=== PATIENT | female | born 1940 | race Caucasian/White ===

== ENCOUNTER 2016-10-14 13:29 | Inpatient (IN) | payer MEDICARE ==
--- NOTE | ~2016-10-14 | HP ---
Unit #: [id number] #: [id number] Patient: JUAN ROLDAN [id number] [address] [address] [id number] E MR#: [id number] NAME: JUAN ROLDAN. ROOM: Age: 75 Sex: F Admission Date: 10/14/2016 : 1940 Attending Physician: Roberto Vanessa M.D. HISTORY AND PHYSICAL CHIEF COMPLAINT Abdominal pain. HISTORY OF PRESENT ILLNESS The patient is a 75-year-old female with a history of colon cancer status post hemicolectomy and history of multiple bowel obstruction in the past, brought to the emergency room with abdominal pain. It started last night. The patient was discharged back in February with small bowel obstruction. The patient presented to the emergency room with heart pain since last night. The pain has been gradually worsening. The patient also stated the patient ate some popcorn and that made the pain to aggravate. The patient is also complaining of nausea associated with the pain. The patient had CT of the abdomen and pelvis that showed partial mechanical small bowel obstruction at the ileocolonic anastomosis in the left upper quadrant at the level of the distal transverse colon with the distal small bowel measuring 4.4 cm in diameter containing fecalized small bowel contents. The patient is being admitted for the above reasons. PAST MEDICAL HISTORY History of breast cancer status post surgery, COPD, colonic strictures, back surgery, hypertension, chronic back pain, chronic respiratory failure on three liters per nasal cannula, gastroesophageal reflux disease and fibromyalgia. PAST SURGICAL HISTORY Right hemicolectomy, appendectomy, multiple back surgeries, foot surgery, total abdominal hysterectomy and bilateral salpingo-oophorectomy. SOCIAL HISTORY The patient lives alone. She quit smoking many years ago. There is no alcohol or any illicit drug abuse. FAMILY HISTORY Notable for dad having dementia. ALLERGIES Carbamazepine, baclofen, naproxen and levofloxacin. HOME MEDICATIONS 1. Losartan. 2. Tamoxifen. 3. Ranitidine. 4. Vitamin B12. 5. Folic acid. Unit #: [id number] #: [id number] Patient: JUAN ROLDAN 6. ProAir. 7. Phenergan. 8. Neurontin. PHYSICAL EXAMINATION GENERAL APPEARANCE: The patient is lying on a bed not in acute distress. VITAL SIGNS: Temperature 97.8. Pulse 131. Respiratory rate 20. Blood pressure 163/116. Sating 98% at room air. HEENT: Head: Atraumatic, normocephalic. ENT: Pupils equal, round, reacting to light and accommodation. Extraocular movements are intact. Dry mucous membrane. NECK: Supple. No lymphadenopathy. LUNGS: Decreased air entry at the bases. No rhonchi. No wheezing. HEART: Regular rate and rhythm. ABDOMEN: Tenderness at the left upper and lower quadrant. Hyperactive bowel sounds. No rigidity. No rebound tenderness. EXTREMITIES: No cyanosis. No clubbing. NEUROLOGIC: The patient is alert, awake, oriented x3. No gross focal motor deficit. DIAGNOSTIC STUDIES LABORATORY: Glucose 100, BUN 19, creatinine 0.9, sodium 138, potassium 3.9, chloride 109, bicarb 20, calcium 9.4, total protein 7.2, albumin 3.9, total bilirubin 0.6, AST 36, ALT 25, alkaline phosphatase 158. Amylase 28, lipase 19. Lactic acid is pending. WBC 12.2, hemoglobin 12.3, hematocrit 37.5, platelets 234, neutrophils 76.6. IMAGING: CT of the abdomen and pelvis shows partial mechanical small bowel obstruction at the ileocolonic anastomosis in the left upper quadrant at the level of the distal transverse colon with the distal small bowel measuring 4.4 cm in diameter, containing fecalized small bowel contents. These are similar to findings noted on CT 03/01/16 and there is also mild dilatation of fluid filled small bowel in the right abdomen. No acute findings on the remainder of the study. Gallbladder distension measuring close to 10 cm in length similar to the prior CT. No renal calculus obstruction. Sigmoid diverticulosis but no diverticulitis. ASSESSMENT 1. Partial small bowel obstruction. 2. Abdominal pain. 3. History of colon cancer status post hemicolectomy. PLAN To admit the patient to inpatient. Continue with bowel rest, IV fluids and LSA consult for the partial small bowel obstruction and pain management. Zofran for the nausea. An NG tube if patient starts vomiting and further recommendations will follow. Dictated by Amada Trejo TD: 10/14/2016 19:01 JOB #: [id number] Unit #: [id number] #: [id number] Patient: YULIJUAN HISTORY AND PHYSICAL Page 1 of 1 X X HISTORY AND PHYSICAL
--- NOTE | ~2016-10-14 | CT4 ---
[facility] A Service of [facility] RADIOLOGY TEXT RESULTS PATIENT: JUAN ROLDAN LOCATION: CEDOF : 40 UNIT #: [id number] AGE: [address]: SREEDHAR DIEHL MD SEX: F ORDER DR: [id number] [facility] [address] [facility]. [place], [place] [address] [id number] E MR#: [id number] Acc #: [id number] NAME: JUAN ROLDAN. : 1940 SEX: F STUDY DATE/TIME: 10/14/2016 15:57 UNIT: LUPE ROOM: STUDY DESCRIPTION: CT Abd and Pelv Wo Cont Attending Physician: Roberto Vanessa M.D. Ordering Physician: Roberto Vanessa M.D. MEDICAL IMAGING REPORT This report is preliminary unless electronic signature is present CT abdomen and pelvis without contrast. HISTORY Abdomen pain, left side, since yesterday. Nausea and diarrhea. TECHNIQUE This CT exam was performed with one or more of the following radiation dose reduction techniques: automatic exposure control, adjustment of mA and/or kV according to patient size, and iterative reconstruction. FINDINGS CT abdomen and pelvis was performed without contrast. CT abdomen demonstrates moderate dilatation of small bowel segment in the mid abdomen extending to the left upper quadrant, with fecalization of distal small bowel contents within the dilated length of small bowel measuring up to 4.4 cm in diameter, with a transition point at the ileocolonic anastomosis in the left upper quadrant at the level of the distal transverse colon, suggesting anastomotic stricture, similar to CT 03/01/16. There is also borderline to mild dilatation of fluid-filled small bowel in the right abdomen, also likely secondary to the distal partial small bowel obstruction. Right hemicolectomy. Distension of the gallbladder measuring 10 cm in length, also similar to the prior CT. Small hiatal hernia. The liver, pancreas, and adrenal glands are normal. Mild generalized bilateral renal parenchymal atrophy. No hydronephrosis. Minimal ascites. Multilevel lower lumbar spinal fusion. CT PELVIS Minimal free fluid in the pelvis. Moderately extensive sigmoid diverticulosis but no evidence of diverticulitis. Urinary bladder is decompressed. Hysterectomy. STS. [facility] A Service of [facility] RADIOLOGY TEXT RESULTS PATIENT: JUAN ROLDAN LOCATION: [facility] [id number] : 40 UNIT #: [id number] AGE: [address]: SREEDHAR DIEHL MD SEX: F ORDER DR: IMPRESSION 1. Partial mechanical small bowel obstruction at the ileal colonic anastomosis in the left upper quadrant at the level of the distal transverse colon with the distal small bowel measuring 4.4 cm in diameter, containing fecalized small bowel contents. These are similar to findings noted on CT 03/01/16, and there is also mild dilatation of fluid-filled small bowel in the right abdomen. 2. No acute findings on the remainder of the study. 3. Gallbladder distension measuring close to 10 cm in length is similar to the prior CT. 4. No urinary calculi or obstruction. 5. Sigmoid diverticulosis but no diverticulitis. Dictated by... Austin Garcia M.D. THIS IS AN ELECTRONICALLY VERIFIED REPORT Austin Garcia M.D. at 10/14/2016 10:49 PM JANAE/alize TD: 10/14/2016 17:33 JOB #: [id number] MEDICAL IMAGING REPORT Page 1 of 1 COPY
--- NOTE | ~2016-10-14 | XA166 ---
[facility] A Service of [facility] RADIOLOGY TEXT RESULTS PATIENT: JUAN ROLDAN LOCATION: C2A : 40 UNIT #: [id number] AGE: [address]: Keira Flores MD SEX: F ORDER DR: [id number] [place] [id number] [facility]. [place], [place] [address] [id number] I MR#: [id number] Acc #: [id number] NAME: JUAN ROLDAN. : 1940 SEX: F STUDY DATE/TIME: 10/16/2016 9:36 UNIT: C2A ROOM: [facility] STUDY DESCRIPTION: XA PICC Line Placement WO Port Attending Physician: Keira Flores M.D. Ordering Physician: Ed Doctor [id number] [facility], [facility] MEDICAL IMAGING REPORT This report is preliminary unless electronic signature is present EXAM Right sided PICC line placement. INDICATIONS Need for IV access. Patient with small bowel obstruction. Diagnosis of October 14, 2016. PRE-PROCEDURE The procedure was explained to the patient and/or patient sales representative cash registers including risks, benefits, potential complications and potential for alternative forms of treatment. Informed consent was obtained, and prior to initiating the procedure a formal timeout procedure was performed. PROCEDURE Using full standard sterile barrier technique, including caps, gowns, gloves, masks, as well as sterile skin preparation and standard sterile draping, the right arm was prepped and draped in the usual fashion, and real-time sterile ultrasound guidance was used to localize an arm vein and to confirm vessel patency. A hard copy ultrasound image was recorded. After local anesthesia with 1% Xylocaine, the vein was punctured using real-time sterile ultrasound guidance, and an 0.018 guidewire was advanced into the superior vena cava, using fluoroscopic guidance. A 5 Guamanian dual lumen PICC was then measured and deployed with the tip positioned in the superior vena cava. The position of the line was documented with a radiographic image. The line was secured in place with an adhesive dressing and an antibiotic patch was applied. Total fluoro time was 0.1 minutes. IMPRESSION Successful placement of a 5 Guamanian dual lumen PowerPICC via the right arm under ultrasound and fluoroscopic guidance. The tip of the PICC is in good position in the superior vena cava. [facility]. [facility] A Service of [facility] RADIOLOGY TEXT RESULTS PATIENT: JUAN ROLDAN LOCATION: [facility] 226-01 : 40 UNIT #: [id number] AGE: [address]: Keira Flores MD SEX: F ORDER DR: Dictated by... Lainey Kimbrough M.D. THIS IS AN ELECTRONICALLY VERIFIED REPORT Lainye Kimbrough M.D. at 10/18/2016 4:54 PM AFF/dj TD: 10/17/2016 08:49 JOB #: [id number] MEDICAL IMAGING REPORT Page 1 of 1 COPY
--- NOTE | ~2016-10-14 | CO ---
Unit #: [id number] #: [id number] Patient: JUAN ROLDAN [id number] [address] [place], [place] [address] [id number] I MR#: [id number] NAME: JUAN ROLDAN. ROOM: 565 Age: 75 Sex: F Admission Date: 10/14/2016 : 1940 Attending Physician: Keira Flores M.D. Consultation Date: 10/15/2016 CONSULTATION REPORT BRIEF HISTORY The patient is a 75-year-old lady, who presents with crampy abdominal pain, nausea and vomiting. She has had multiple bowel movements including loose bowel movements. She has had multiple admissions for small bowel obstruction. She states her pain is left upper quadrant, crampy in characteristic, nonradiating. She has had no fevers or chills. PAST MEDICAL HISTORY She has a history of COPD, hypertension, chronic back pain, gastroesophageal reflux disease and fibromyalgia. PAST SURGICAL HISTORY She has had a right hemicolectomy and total abdominal hysterectomy. SOCIAL HISTORY Lives alone. No smoking. No alcohol. FAMILY HISTORY Negative for GI malignancy. REVIEW OF SYSTEMS No cardiopulmonary complaints at this time. Else, 10 systems reviewed and negative. PHYSICAL EXAMINATION GENERAL: She is awake, alert, appropriate, currently afebrile. HEENT: Unremarkable. NECK: Supple. No JVD. Trachea midline. LUNGS: Clear to auscultation. Bilateral breath sounds symmetric. CARDIOVASCULAR: Regular rate and rhythm. ABDOMEN: Soft. It is nontender, and nondistended. I palpate no masses. No hepatosplenomegaly. EXTREMITIES: No clubbing, cyanosis, or edema. DIAGNOSTIC STUDIES LABORATORY RESULTS: Show white count of 12, hemoglobin of 12.3. Chemistries are normal. CT scan shows dilated small bowel with transition zone at the small bowel anastomosis. ASSESSMENT Small bowel obstruction. PLAN Unit #: [id number] #: [id number] Patient: JUAN ROLDAN Recommend IV fluids, bowel rest, NG tube decompression. We will reassess. Consider small bowel follow-through versus operative management. Dictated by... Hossein Tapia M.D. LAURA/larry TD: 10/15/2016 09:25 JOB #: [id number] CONSULTATION REPORT Page 1 of 1 X Hossein Tapia MD CONSULTATION REPORT
--- NOTE | ~2016-10-14 | A ---
[facility] Nutrition Therapy DATE: 10/16/16 Patient: JUAN ROLDAN Physician: GERARD Address: [address] [place] [address] Room/Bed: [address] [place] [address], Zip: [place] [address] Admit Date: 10/14/16 Date of : 40 Height: 5 3 Weight: 136 61.68 NUTRITIONAL ASSESSMENT: REASON: 6 NUTRITION RISK PT RE: POOR PO INTAKE + 40# WEIGHT LOSS, ALSO CONSULT RE: WEIGHT LOSS PT IS 75 Y.O. FEMALE ADMITTED FOR PARTIAL SMALL BOWEL OBSTRUCTION, ABD PAIN PMH: CVA, COPD, GERD, MULTIPLE BOWEL OBSTRUCTIONS, BREAST CA S/P LUMPECTOMY, HTN, CHRONIC RESP FAILURE, COLON CA S/P HEMICOLECTOMY Anthropometrics: 5'3", WT: 136# (62 KG), BMI: 24.1, 118%IBW Labs: GFR: 49.1 Meds: REGLAN, D5%, PROTONIX, ZOFRAN, NACL I/O & Bowel function: -/755; NG TO LWS Skin Integrity: SCATTERED BRUISES; DRY SKIN NOTED Estimated Nutrition Needs: INCREASED NUTRIENT NEEDS 2' WEIGHT LOSS NOTED, CURRENT CONDITION, DECREASED PO INTAKE AND APPETITE Assessment: CHART REVIEWED AND EVENTS NOTED. PT SEEN FOR 6 NUTRITION RISK PT RE: WEIGHT LOSS + POOR PO INTAKE. PT CONFIRMED DECREASED PO INTAKE 2' DECREASED APPETITE PRIOR TO ADMIT FOR WEEKS D/T N/V/ABD PAIN. PT REPORTS LOSING ~40# BUT UNABLE TO KNOW TIME FRAME OF WEIGHT LOSS. PER [employer] PT WEIGHED 170# BACK IN 2014, AND NOTED ~145-150# IN 2016. OF NOTE, RD ASSESSED PT BACK IN FEB 2016 AND NOTED PT TO HAVE POOR PO INTAKE. THIS RD ENCOURAGED SMALL FREQUENT MEALS AND SLOW GRADUAL PO INTAKE ONCE DIET ADVANCES, PT AGREED. PT REPORTED NO DIET QUESTIONS AT THIS TIME. RD TO FOLLOW. SEE RECOMMENDATIONS BELOW. Dx: INADEQUATE PROTEIN-ENERGY INTAKE R/T DECREASED APPETITE, CURRENT CONDITION AEB PT REPORT ABOVE, WEIGHT LOSS NOTED OVER PAST 2 YEARS. Intervention: 1. NO DIET ORDER 2. RD CONSULT Monitoring, Evaluation and Goals: 1. ORAL INTAKE; ADVANCE DIET AND CONSUME >50% OF MEALS W/NO C/O N/V/D 2. WEIGHTS; PREVENT FURTHER UNINTENTIONAL WEIGHT LOSS 3. GI; PROMOTE REGULAR GI FUNCTION MONITOR: [facility] Nutrition Therapy DATE: 10/16/16 Patient: JUAN Botello UYLI Physician: GERARD Address: [address] [place] [address] Room/Bed: [address] [place] [address], Zip: [place] [address] Admit Date: 10/14/16 Date of : 40 Height: 5 3 Weight: 136 61.68 -DIET ADVANCEMENT -PO INTAKE/APPETITE -WEIGHTS Recommendations: 1. ONCE MEDICALLY FEASIBLE, BEGIN WITH CLEAR LIQUID DIET AND ADVANCE TOLERATED TO LOW FIBER/GI SOFT 2. PLEASE ORDER ENSURE CLEAR BID, IF PT ON CLEAR LIQUID, OR ENSURE ENLIVE SHAKES BID ONCE DIET ADVANCES 3. APPRECIATE FAMILY AND STAFF TO ENCOURAGE PO INTAKE 4. IF PT UNABLE TO TOLERATE PO INTAKE, CONSULT RD FOR RECOMMENDATIONS RD WILL F/U PER PROTOCOL PT IS MODERATELY COMPROMISED Respectfully, BURAK ALEXANDER MS, RD, LD [employer] [facility] [employer] cc: client file
--- NOTE | ~2016-10-14 | DS ---
Unit #: [id number] #: [id number] Patient: JUAN BALDWIN [id number] [address] [address] [id number] I MR#: [id number] NAME: JUAN BALDWIN. ROOM: 226 Age: 75 Sex: F Admission Date: 10/14/2016 : 1940 Discharge Date: 10/18/2016 Attending Physician: Keira Flores M.D. Primary Care Physician: Md2[facility] DISCHARGE SUMMARY PRINCIPAL DIAGNOSES 1. Partial small bowel obstruction, resolved. 2. Toxic metabolic encephalopathy secondary to #1, now resolved. 3. Chronic hypoxic respiratory failure, maintained on 2 to 3 L of oxygen per nasal cannula continuously. The patient is not compliant with this. 4. Chronic pain syndrome, maintained on morphine pain pump. 5. Chronic obstructive pulmonary disease. 6. Hypertension. 7. Gastroesophageal reflux disease. 8. Physical deconditioning. 9. History of stroke. 10. History of breast cancer. 11. Leukopenia: Discharge white blood cell count 3.7. 12. Hypokalemia. 13. Normocytic anemia. CLINICAL HISTORY/HOSPITAL COURSE Ms. Baldwin is a 75-year-old female with a history of recurrent small bowel obstruction following a hemicolectomy who presents to the ER with complaints of abdominal pain, nausea and omitting. Please refer to H and P for further details. CT scan of the abdomen and pelvis in the emergency department revealed partial mechanical small bowel obstruction at the ileocolonic anastomosis. No other acute findings were noted. The patient was subsequently admitted. The patient was made NPO, placed on IV fluids, antiemetics and pain medication. LSA was consulted. With supportive management including an NG-tube for a short period, the patient's symptoms improved. NG was subsequently removed given follow up KUB did not demonstrate any obstruction. The patient subsequently underwent a small bowel follow through on October 17 which was not revealing any obstruction currently. The patient was placed on clears and now has been placed on a full liquid diet which she is tolerating without any pain, nausea or vomiting. The patient was mildly confused upon presentation but this resolved spontaneously. She is alert and oriented x3 for the most part now but still intermittently remains confused and I suspect this is close to her base and can be followed up as an outpatient. The patient is also significantly deconditioned and will be discharged to rehab. Unit #: [id number] #: [id number] Patient: JUAN BALDWIN The patient does have a history of hypertension but has remained off of her antihypertensives during hospitalization here with systolics generally running in the 130s. I am going to hold her Cozaar but this can be reinitiated at rehab as necessary. The patient also has chronic respiratory failure but is noncompliant with her oxygen. O2 sats are remaining in the 90s generally off of oxygen but if her O2 sats drop she does chronically wear 2 to 3 L at home. DISCHARGE CONDITION Stable. DISCHARGE STATUS Discharge to rehab. DISCHARGE MEDICATIONS 1. Ventolin inhaler one puff every six hours p.r.n. for shortness of breath. 2. Combivent nebulizer solution, 3 mL every six hours p.r.n. for shortness of breath. 3. Tylenol 650 mg p.o. q.6 hours p.r.n. for pain. 4. Phenergan 25 mg p.o. q.6 hours p.r.n. for nausea. 5. Mineral oil 3 mL p.o. daily. 6. Ranitidine 300 mg p.o. b.i.d. 7. Vitamin B12 1000 mcg p.o. daily. 8. O2 a 2 L per nasal cannula continuous if patient is agreeable. Of note, patient's gabapentin, which is 600 mg four times daily and Losartan 50 mg p.o. daily, are being held. She is not complaining of any increased pain. Thus, I did not reinitiate her gabapentin and, again, blood pressure, as noted above, has been stable but if blood pressure elevates you can reinitiate losartan. DISCHARGE INSTRUCTIONS The patient was instructed to follow a regular diet. She can increase he activity as tolerated under the care of physical and occupational therapy. FOLLOWUP The patient will follow up with [facility] upon discharge from rehab. She can follow up with Dr. Rose, who is her chronic pain management, upon discharge from rehab as well. She can follow up with LSA in two weeks. Dictated by... Keira Flores M.D. SIMÓN/nanette TD: 10/18/2016 11:24 JOB #: [id number] Unit #: [id number] #: [id number] Patient: JUAN BALDWIN A DISCHARGE SUMMARY Page 1 of 1 X Keira Flores MD X DISCHARGE SUMMARY
--- NOTE | ~2016-10-14 | CR4 ---
[facility] A Service of [facility] RADIOLOGY TEXT RESULTS PATIENT: JUAN ROLDAN LOCATION: [facility] 565-01 : 40 UNIT #: [id number] AGE: [address]: Keira Flores MD SEX: F ORDER DR: [id number] [facility] [address] [facility]. [place], [place] [address] [id number] I MR#: [id number] Acc #: [id number] NAME: JUAN ROLDAN : 1940 SEX: F STUDY DATE/TIME: 10/16/2016914 UNIT: [facility] ROOM: [facility] STUDY DESCRIPTION: CR Abdomen Flat Upright or Dec Attending Physician: Keira Flores M.D. Ordering Physician: Abimael Estrada III, M.D. MEDICAL IMAGING REPORT This report is preliminary unless electronic signature is present EXAM Abdomen supine and upright, 10/16/2016, 0915 hours. CLINICAL HISTORY 75-year-old woman with shortness of air, abdominal pain, small bowel obstruction for 2 days for followup. COMPARISON 10/15/2016 FINDINGS Supine and upright views of the abdomen demonstrate a new nasogastric tube with tip directed rightward in the right upper quadrant, likely at or near the pylorus. Pump device over the left lower quadrant is unchanged. There is a nonspecific bowel gas pattern with no significant distension of small bowel or colon. No definite bowel wall thickening is seen. IMPRESSION 1. New nasogastric tube tip is directed rightward in the right upper quadrant, likely at or near the pylorus. 2. No definite bowel obstruction or distension. No free air is seen. There are pelvic phleboliths unchanged. Dictated by... Mariah Myers M.D. THIS IS AN ELECTRONICALLY VERIFIED REPORT Mariah Myers M.D. at 10/16/2016 2:29 PM HUSSEIN/keren TD: 10/16/2016 10:36 [facility] A Service of [facility] RADIOLOGY TEXT RESULTS PATIENT: JUAN ROLDAN LOCATION: [facility] 565-01 : 40 UNIT #: [id number] AGE: [address]: Keira Flores MD SEX: F ORDER DR: JOB #: [id number] MEDICAL IMAGING REPORT Page 1 of 1 COPY
--- NOTE | ~2016-10-14 | CR2 ---
[facility] A Service of [facility] RADIOLOGY TEXT RESULTS PATIENT: JUAN ROLDAN LOCATION: [place] [address] : 40 UNIT #: [id number] AGE: [address]: Keira Flores MD SEX: F ORDER DR: [id number] [place] [id number] [facility]. [place], [place] [address] [id number] I MR#: [id number] Acc #: [id number] NAME: JUAN ROLDAN. : 1940 SEX: F STUDY DATE/TIME: 10/15/2016 7:22 UNIT: [facility] ROOM: [facility] STUDY DESCRIPTION: CR Abdomen Acute Series Attending Physician: Keira Flores M.D. Ordering Physician: Jonatan Dugan M.D. MEDICAL IMAGING REPORT This report is preliminary unless electronic signature is present EXAM Acute abdomen series, 10/15/2016. HISTORY 75-year-old female with abdominal pain for 1 day. COMPARISON Acute abdomen series 03/03/2016. CT abdomen and pelvis 10/14/2016. FINDINGS Frontal chest and 2 flat and upright views of the abdomen were performed, 3 total images. Lungs and pleural spaces are clear. No pneumothorax. Heart size is upper limits. Mediastinum and pulmonary vasculature unremarkable. The bowel gas pattern is nonobstructive. No free intraperitoneal air. Left lower quadrant gastric stimulator. Postsurgical changes of the lumbar spine. IMPRESSION 1. No acute chest findings. 2. Nonspecific, nonobstructive bowel gas pattern. No free intraperitoneal air. Dictated by... Luis Gandhi M.D. THIS IS AN ELECTRONICALLY VERIFIED REPORT Luis Gandhi M.D. at 10/16/2016 8:53 AM MIGUEL/keren [facility] A Service [facility] RADIOLOGY TEXT RESULTS PATIENT: JUAN ROLDAN LOCATION: [facility]09-25 : 40 UNIT #: [id number] AGE: [address]: Keira Flores MD SEX: F ORDER DR: TD: 10/15/2016 08:13 JOB #: [id number] MEDICAL IMAGING REPORT Page 1 of 1 COPY
--- NOTE | ~2016-10-14 | CR236 ---
[facility] A Service of [facility] & [facility] RADIOLOGY TEXT RESULTS PATIENT: JUAN ROLDAN LOCATION: C2A : 40 UNIT #: [id number] AGE: [address]: Keira Flores MD SEX: F ORDER DR: [id number] [place] [id number] [facility]. [id number] MR#: [id number] #: [id number] NAME: JUAN ROLDAN. : 1940 SEX: F STUDY DATE/TIME: 10/17/2016 11:53 UNIT: C2 ROOM: [facility] STUDY DESCRIPTION: CR Small Bowel Sbft W Films Attending Physician: Keira Flores M.D. Ordering Physician: Teddy Lynn M.D. MEDICAL IMAGING REPORT This report is preliminary unless electronic signature is present EXAM Small bowel follow-through INDICATIONS Abdominal pain around pain pump, concern for small bowel obstruction. Patient has had a previous partial colectomy. FINDINGS Multiple spot images were obtained following the ingestion of barium. The study demonstrates dilated loops of small bowel. There is a focal area of fecalized bowel contents within the ileum just before the ileocolic anastomosis, and there appears to be some narrowing of the anastomotic site but contrast does flow through the anastomosis and into the colon. Review of a CT scan from 10/14/2016 shows a large amount of fecalized contents within the ileum just prior to the anastomosis. 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 IMPRESSION Dilated loops of small bowel as described, with fecalization of contents of the ileum just before the ileocolic anastomosis, but there is some contrast entering the colon. 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 Dictated by... Raffy Mei M.D. THIS IS AN ELECTRONICALLY VERIFIED REPORT Raffy Mei M.D. at 10/18/2016 7:46 AM ARS/psc TD: 10/17/2016 22:48 [facility] A Service of [facility] & [facility] RADIOLOGY TEXT RESULTS PATIENT: JUAN ROLDAN LOCATION: [place] [address] : 40 UNIT #: [id number] AGE: [address]: Keira Flores MD SEX: F ORDER DR: VIANEY #: [id number] MEDICAL IMAGING REPORT Page 1 of 1 COPY
[~2016-10-14 13:29] MED LIST: ALTOPREV40 MG PO; AMLODIPINE BESY10 MG PO; B-COMPLEX-VITA1 EACH PO; CALCIUM + D 6001 TA1 PO; CATAPRES-TTS-20.2 MG PO; COMBIVENT INH14.7 GM INH; CYMBALTA30 MG PO; DOMPERIDONE; DOMPERIDONE PO; DURAGESIC TOP; DURAGESIC75 MCG TD; FISH OIL 1,0001 CAP PO; GLUCOSAMINE & C1 CAP PO; HYDROCHLOROTHIA25 MG PO; IMMODIUM1 MG/5 M1 PO; LEVOTHYROXINE75 MCG PO; LORTAB 5/500 TA1 TA1 PO; LOSARTAN POTASS50 MG PO; LYRICA100 MG PO; LYRICA75 MG PO; MULTI-VITAMIN1 TAB PO; NEURONTIN600 MG PO; NEXIUM PO; NOLVADEX PO; OXYCODON HCL-1 UDTAB PO; OXYGEN; PERCOCET 10/3251 TAB PO; PHENERGAN25 M1 PO; PHENERGAN25 MG PO; PROAIR HFA8.5 GM IH; PROAIR HFA8.5 GM INH; RANITIDINE HCL300 M1 PO; RANITIDINE HCL300 MG PO; SEE BELOW; TAMOXIFEN CITRA20 MG PO; TOPROL XL PO; VICODIN 5/1 TAB 5/50 PO; VIT B-12 PO; VITAMIN B12-FO1 EACH PO; VITAMIN D250000 UNIT PO; WELCHOL625 MG PO; ZEGERID OTC 201 EACH; ZOFRAN PO; [UNRECOGNIZED DRUG - OTHER]; [UNRECOGNIZED DRUG - OTHER]; [UNRECOGNIZED DRUG - OTHER] PO
[2016-10-14] MEDS ORDERED: XARELTO15 MG PO (14:53)
[2016-10-14] MEDS ORDERED: SIMVASTATIN40 MG PO (14:54)
[2016-10-14] MEDS ORDERED: VOLTAREN100 GM TOP (14:56)
[2016-10-14] MEDS ORDERED: ZYRTEC10 M2 PO (14:56)
[2016-10-14] MEDS ORDERED: FLONASE 0.05% N16 GM (14:57)
[2016-10-14] MEDS ORDERED: MUCINEX1200 MG PO (14:58)
[2016-10-14] MEDS ORDERED: TYLENOL325 M1 PO (14:58)
[2016-10-14] MEDS ORDERED: BENADRYL25 M3 PO (14:59)
[2016-10-14 15:23] LABS: BASOPHIL% 0.2 % (0-2.5); EOSINOPHIL# 0.2 X10e3 (0-0.7); EOSINOPHIL% 1.9 % (0.0-7.0); HEMATOCRIT 37.5 % (35.0-45.0); HEMOGLOBIN 12.3 gm/dL (12.0-16.0); LYMPHOCYTE# 1.8 X10e3 (1.0-3.5); LYMPHOCYTE% 14.8 % (17.0-45.0); MEAN CELL VOLUME 92.9 FL (83-96); MEAN CORPUSCULAR HEMOGLOBIN 30.4 PG (28-34); MEAN CORPUSCULAR HGB CONC 32.7 g/dL (30-36); MEAN PLATELET VOLUME 9.6 FL (6.5-11.5); MONOCYTE# 0.8 X10e3 (0-1.0); MONOCYTE% 6.5 % (3.0-12.0); NEUTROPHIL# 9.4 X10e3 (1.5-7.1); NEUTROPHIL% 76.6 % (40-75); PLATELET COUNT 234 X10e3 (140-420); RED BLOOD COUNT 4.04 X10e (3.90-5.30); RED CELL DISTRIBUTION WIDTH 14.3 % (11.0-15.5); WHITE BLOOD COUNT 12.2 X10e3 (4.0-10.5)
[2016-10-14 15:27] LABS: DIFF IND NO
[2016-10-14 15:47] LABS: ALBUMIN SERUM 3.9 g/dL (3.5-5.0); BILIRUBIN, DIRECT 0.1 mg/dL (0.0-0.2); BILIRUBIN,INDIRECT 0.5 mg/dL (0.0-0.9); BILIRUBIN,TOTAL 0.6 mg/dL (0.2-2.0); BUN/CREATININE RATIO 21.11; CALCIUM SERUM 9.4 mg/dL (8.4-10.2); CREATININE SERUM 0.9 mg/dL (0.6-1.4); GLOM FILT RATE Estimated 62.6 mL/min (>60); POTASSIUM 3.9 mmol/L (3.5-5.1); PROTEIN TOTAL SERUM 7.2 g/dL (6.0-8.3)
[2016-10-14] MEDS ORDERED: GABAPENTIN600 MG PO (22:46)
[2016-10-14] MEDS ORDERED: PHENERGAN25 MG PO (22:47)
[2016-10-14] MEDS ORDERED: ALBUTEROL17 GM INH (22:48)
[2016-10-14] MEDS ORDERED: B-12 1,000 MCG1 EACH SL (22:48)
[2016-10-14] MEDS ORDERED: RANITIDINE HCL300 M1 PO (22:49)
[2016-10-14] MEDS ORDERED: LOSARTAN POTASS50 MG PO (22:49)
[2016-10-15 09:40] LABS: BASOPHIL% 0.1 % (0-2.5); EOSINOPHIL# 0.1 X10e3 (0-0.7); EOSINOPHIL% 0.9 % (0.0-7.0); HEMATOCRIT 34.5 % (35.0-45.0); HEMOGLOBIN 11.2 gm/dL (12.0-16.0); LYMPHOCYTE# 1.2 X10e3 (1.0-3.5); LYMPHOCYTE% 16.6 % (17.0-45.0); MEAN CELL VOLUME 94.8 FL (83-96); MEAN CORPUSCULAR HEMOGLOBIN 30.7 PG (28-34); MEAN CORPUSCULAR HGB CONC 32.4 g/dL (30-36); MEAN PLATELET VOLUME 9.6 FL (6.5-11.5); MONOCYTE# 0.8 X10e3 (0-1.0); MONOCYTE% 10.4 % (3.0-12.0); NEUTROPHIL# 5.3 X10e3 (1.5-7.1); PLATELET COUNT 198 X10e3 (140-420); RED BLOOD COUNT 3.64 X10e (3.90-5.30); RED CELL DISTRIBUTION WIDTH 14.6 % (11.0-15.5); WHITE BLOOD COUNT 7.4 X10e3 (4.0-10.5)
[2016-10-15 09:41] LABS: DIFF IND NO
[2016-10-15 10:02] LABS: BUN/CREATININE RATIO 21.66; CALCIUM SERUM 8.2 mg/dL (8.4-10.2); CREATININE SERUM 1.2 mg/dL (0.6-1.4); GLOM FILT RATE Estimated 44.2 mL/min (>60)
[2016-10-16 07:47] LABS: HEMATOCRIT 29.5 % (35.0-45.0); HEMOGLOBIN 9.6 gm/dL (12.0-16.0); MEAN CELL VOLUME 95.2 FL (83-96); MEAN CORPUSCULAR HGB CONC 32.6 g/dL (30-36); MEAN PLATELET VOLUME 9.7 FL (6.5-11.5); RED BLOOD COUNT 3.1 X10e (3.90-5.30); RED CELL DISTRIBUTION WIDTH 14.3 % (11.0-15.5); WHITE BLOOD COUNT 5.1 X10e3 (4.0-10.5)
[2016-10-16 08:28] LABS: BUN/CREATININE RATIO 20.9; CALCIUM SERUM 8.4 mg/dL (8.4-10.2); CREATININE SERUM 1.1 mg/dL (0.6-1.4); GLOM FILT RATE Estimated 49.1 mL/min (>60); MAGNESIUM 1.9 mg/dL (1.6-3.0); POTASSIUM 3.8 mmol/L (3.5-5.1)
[2016-10-17 05:16] LABS: HEMATOCRIT 26.4 % (35.0-45.0); HEMOGLOBIN 8.6 gm/dL (12.0-16.0); MEAN CELL VOLUME 93.2 FL (83-96); MEAN CORPUSCULAR HEMOGLOBIN 30.5 PG (28-34); MEAN CORPUSCULAR HGB CONC 32.7 g/dL (30-36); MEAN PLATELET VOLUME 9.5 FL (6.5-11.5); RED BLOOD COUNT 2.83 X10e (3.90-5.30); RED CELL DISTRIBUTION WIDTH 14.1 % (11.0-15.5); WHITE BLOOD COUNT 3.8 X10e3 (4.0-10.5)
[2016-10-17 07:07] LABS: BUN/CREATININE RATIO 17.77; CALCIUM SERUM 8.2 mg/dL (8.4-10.2); CREATININE SERUM 0.9 mg/dL (0.6-1.4); GLOM FILT RATE Estimated 62.6 mL/min (>60); POTASSIUM 3.8 mmol/L (3.5-5.1)
[2016-10-18 07:02] LABS: HEMATOCRIT 26.3 % (35.0-45.0); HEMOGLOBIN 8.7 gm/dL (12.0-16.0); MEAN CELL VOLUME 93.2 FL (83-96); MEAN CORPUSCULAR HEMOGLOBIN 30.9 PG (28-34); MEAN CORPUSCULAR HGB CONC 33.2 g/dL (30-36); MEAN PLATELET VOLUME 9.5 FL (6.5-11.5); RED BLOOD COUNT 2.82 X10e (3.90-5.30); RED CELL DISTRIBUTION WIDTH 14.3 % (11.0-15.5); WHITE BLOOD COUNT 3.7 X10e3 (4.0-10.5)
[2016-10-18 07:49] LABS: CALCIUM SERUM 8.1 mg/dL (8.4-10.2); CREATININE SERUM 0.8 mg/dL (0.6-1.4); GLOM FILT RATE Estimated 72.2 mL/min (>60); POTASSIUM 3.4 mmol/L (3.5-5.1)
== END 2016-10-18 11:55 | DRG 388 ==
LOC: CED 13:29 → CEDOF 18:14 → C5C 10-15 07:57 → C2A 10-16 20:42
PROVIDERS: Internal Medicine; Surgery
PROC: 02HV33Z Insertion of Infusion Device into Superior Vena Cava, Percutaneous Approach (ICD-10-PCS; principal; 2016-10-17)
PROC: B518YZA Fluoroscopy of Superior Vena Cava using Other Contrast, Guidance (ICD-10-PCS; 2016-10-17)
PROC: B548ZZA Ultrasonography of Superior Vena Cava, Guidance (ICD-10-PCS; 2016-10-17)
DX: K56.60 Unspecified intestinal obstruction (principal); G92 Toxic encephalopathy; J96.11 Chronic respiratory failure with hypoxia; Z99.81 Dependence on supplemental oxygen; Z85.038 Personal history of other malignant neoplasm of large intestine; Z85.3 Personal history of malignant neoplasm of breast; J44.9 Chronic obstructive pulmonary disease, unspecified; I10 Essential (primary) hypertension; K21.9 Gastro-esophageal reflux disease without esophagitis; M79.7 Fibromyalgia; G89.4 Chronic pain syndrome; D72.819 Decreased white blood cell count, unspecified; E87.6 Hypokalemia; D64.9 Anemia, unspecified; Z90.710 Acquired absence of both cervix and uterus; Z87.891 Personal history of nicotine dependence; I69.320 Aphasia following cerebral infarction
CPT/HCPCS: 36415; 74020; 74022; 74176; 74250; 76937; 77001; 80048; 80076; 82150; 82947; 83605; 83690; 83735; 85025; 85027; 92507; 92523-GN; 92610; 94640; 94760; 97110; 97116; 97163; 97166; 99285; C1751; C9113; G8978-GP; G8979-GP; G8987-GO; G8988-GO; G9162-GN; G9163-GN; G9164-GN; J2270; J2405; J2765